=== PATIENT | male | born 1960 | race Caucasian/White ===

== ENCOUNTER 2025-01-03 06:25 | Day surgery (SDC) | payer MEDICARE, OTHER, SELFPAY ==
[2024-12-21 14:19] VITALS: BMI 22.6
[2025-01-03] VITALS (8 sets, daily range): BP systolic 118–149; BP diastolic 52–75; BMI 22.6
--- NOTE | 2025-01-03 11:06 | HP.FOC2 ---
Focused History & Physical
Chief Complaint
HPI:
Chief Complaint: Left inguinal hernia
HPI / Indication for Planned Procedure: Patient is a 64-year-old male recently seen in outpatient surgical evaluation with a 2 to 3-year history of visible swelling in the left inguinal region. Hernia is a bit of an annoyance for him but there is
no significant pain or discomfort. No symptoms suggestive of intermittent incarceration or obstruction. Outpatient evaluation confirmed the presence of a reducible left inguinal hernia. After discussions regarding treatment options the patient
wished to pursue operative correction and presents today for scheduled operative repair
Relevant Past Medical History: Other (BPH)
Relevant Social History: Negative
Relevant Family History: Negative
Relevant Past Surgical History: Positive for (Open right inguinal hernia repair 2010, right hip replacement 2019)
Review of Systems
Review of Pertinent Systems: All Systems Negative
Medication
See Medication form for detailed medications: Yes
Medication List (including Herbals & OTC):
Mclean 3 1 dose PO DAILY 12/27/24
ascorbic acid (vitamin C) 500 mg tablet (Vitamin C) 750 mg PO BID 12/27/24
fluticasone propionate 50 mcg/actuation nasal spray,suspension 2 spray intranasal DAILY 12/27/24
ibuprofen 800 mg tablet 800 mg PO Q6H PRN pain 12/27/24
magnesium 250 mg tablet 750 mg PO DAILY 12/27/24
naproxen 500 mg tablet 500 mg PO BID PRN pain 12/27/24
phenylephrine HCl 0.5 % nasal spray 1 spray intranasal ONCE PRN nasal congestion 12/27/24
tadalafil 10 mg tablet 5 mg PO DAILY PRN ED 12/27/24
terazosin 5 mg capsule 5 mg PO HS 12/27/24
trazodone 100 mg tablet 25 - 100 mg PO HS PRN anxiety 12/27/24
valacyclovir 1 gram tablet 1,000 mg PO PRN PRN Herpes simplex 12/27/24
Medications Reviewed: Yes
Allergies and Reactions
Patient has Allergies: No
Noted Allergies and Reactions:
Allergy/AdvReac Type Severity Reaction Status Date / Time
No Known Allergies Allergy Unverified 12/27/24 13:32
Pertinent Physical Exam
All Other Systems: Negative
Head/Neck: Normal
Lungs: Normal
Heart: Normal
Abdomen: Other (Reducible left inguinal hernia)
Extremities: Normal
Neurological: Normal
Diagnosis / Assessment
64-year-old male presenting for scheduled operative correction of left inguinal hernia
Plan / Procedure
Laparoscopic TEP repair left inguinal hernia with mesh
Anesthesia/Sedation to be done by Anesthesia Provider: Yes
--- NOTE | 2025-01-03 11:08 | W.SUR.PREOP ---
Pre-Operative Surgical Note
-
I have examined this patient prior to the performance of the scheduled procedure.
The patient's condition is unchanged from the time of the current History and
Physical and the patient is able to undergo the scheduled procedure.
[2025-01-03] MEDS: NORMOSOL-R/PLASMALYTE-A 1000 IV (11:15)
[2025-01-03] MEDS: TYLENOL 1000 MG PO (11:17)
--- NOTE | 2025-01-03 14:55 | W.IMMPOSTOP ---
Addendum entered and electronically signed by Sudhakar Haas MD 01/03/25 15:21:
#[id number]
Original Note:
Surgical Immed Post Op Note
-
Primary Surgeon: Sudhakar Haas MD
Assisting Surgeon: Shanti Eng PA-C
Pre-op Diagnosis: Left inguinal hernia
Post-op Diagnosis: Left inguinal hernia, direct
Procedure Performed: Laparoscopic TEP repair left inguinal hernia with mesh; 3D max mid large size.
Anesthesia Type: GETA +0.25% Marcaine
Specimen / Cultures: None
Estimated Blood Loss: 6 mL
Complications: None immediate
Operative Findings: Left direct inguinal hernia. No indirect component. No lipoma of cord structures identified. Pseudosac reduced and secured to Ian's with Capsure 2 tacks. 3D max large mid weight mesh secured to Ian's ligament with 2
tacks. No peritoneal entry during dissection.
The assistance of Shanti Eng PA-C was required due to the complexity of the procedure. During the procedure Shanti Eng PA-C assisted with trocar placement, managing laparoscopic camera for visualization, and closure of the surgical incision
sites. I was present for the entirety of the operative procedure.
[2025-01-03] MEDS: ZOFRAN 4 MG IV (15:45)
== END 2025-01-03 17:15 | disposition home or self-care (01) ==
LOC: SDS 06:25
PROVIDERS: ATTENDING PHYSICIAN Surgery; FAMILY PHYSICIAN Family Medicine
DX: K40.90 Unilateral inguinal hernia, without obstruction or gangrene, not specified as recurrent (principal); N40.0 Benign prostatic hyperplasia without lower urinary tract symptoms
CPT/HCPCS: 49650; C1781

== ENCOUNTER → 2025-04-19 13:48 | Outpatient (REF) | payer MEDICARE, OTHER, SELFPAY | LOC: HWRAD 13:48 | PROVIDERS: ATTENDING PHYSICIAN Surgery; FAMILY PHYSICIAN Family Medicine | DX: R10.32 Left lower quadrant pain (principal) | CPT/HCPCS: 76870; 93976 ==